=== PATIENT | male | born 1985 | race African-American/Black ===

== ENCOUNTER 2018-03-29 11:41 | Emergency (ER) | payer MEDICAID, OTHER ==
[~2018-03-29] VITALS: Ht 195.6 cm; Wt 76.0 kg
[2018-03-29 11:57] VITALS: BP 120/76
--- NOTE | 2018-03-29 12:04 | NUR ---
pt to ed for left dental pain x3 days. awaiting pa assessment.
[2018-03-29] MEDS ORDERED: HYDROcodone/APAP 5/325 TABLET PO ONE (12:30)
[2018-03-29] MEDS ORDERED: IBUPROFEN 600 MG TABLET PO ONE (12:30)
[2018-03-29] MEDS ORDERED: HYDROcodone/APAP 5/325 TABLET ONE (12:34)
[2018-03-29] MEDS ORDERED: IBUPROFEN 200 MG TABLET ONE (12:34)
== END 2018-03-29 12:47 | disposition home or self-care (01) ==
LOC: ED 12:25
DX: K02.9 Dental caries, unspecified (principal); J45.909 Unspecified asthma, uncomplicated; F17.200 Nicotine dependence, unspecified, uncomplicated
CPT/HCPCS: 99283

== ENCOUNTER 2018-10-08 17:48 | Emergency (ER) | payer MEDICAID ==
[~2018-10-08] VITALS: Ht 195.6 cm; Wt 75.2 kg
[2018-10-08 18:22] VITALS: BP 135/97
== END 2018-10-08 19:26 | disposition home or self-care (01) ==
LOC: ED 19:25
DX: G89.11 Acute pain due to trauma (principal); M54.5 Low back pain; J45.909 Unspecified asthma, uncomplicated; X58.XXXA Exposure to other specified factors, initial encounter; Y93.89 Activity, other specified; Y92.89 Other specified places as the place of occurrence of the external cause; Y99.8 Other external cause status
CPT/HCPCS: 72110; 96372; 99283; J1885

== ENCOUNTER 2019-12-31 13:56 | Emergency (ER) | payer SELFPAY ==
[~2019-12-31] VITALS: Ht 195.6 cm; Wt 74.4 kg
--- NOTE | 2019-12-31 15:02 | NUR ---
ASSUMED CARE OF PATIENT.
[2019-12-31 15:33] VITALS: BP 133/94
== END 2019-12-31 16:15 | disposition home or self-care (01) ==
LOC: ED 15:20
DX: L89.891 Pressure ulcer of other site, stage 1 (principal); M79.671 Pain in right foot; J45.909 Unspecified asthma, uncomplicated
CPT/HCPCS: 99283

== ENCOUNTER 2020-02-28 14:37 | Emergency (ER) | payer SELFPAY ==
[~2020-02-28] VITALS: Ht 195.6 cm; Wt 75.0 kg
--- NOTE | 2020-02-28 16:13 | NUR ---
TO [facility] FROM [facility]
[2020-02-28] MEDS ORDERED: KETOROLAC 60 MG/2 ML ONE (16:30)
[2020-02-28] MEDS ORDERED: HYDROcodone/APAP 5/325 TABLET ONE (16:30)
[2020-02-28] MEDS ORDERED: HYDROcodone/APAP 5/325 TABLET PO ONE (16:30)
[2020-02-28] MEDS ORDERED: KETOROLAC 30 MG/1 ML IM ONE (16:30)
--- NOTE | 2020-02-28 17:11 | NUR ---
Pt states he had a mechanical fall on 02/11. Pt has healed wound above L eyebrow, bilateral trapezious muscles are tight on palpation. Pt has limited neck movement.
[2020-02-28 17:27] VITALS: BP 138/90
== END 2020-02-28 17:29 | disposition home or self-care (01) ==
LOC: ED 17:20
DX: S16.1XXA Strain of muscle, fascia and tendon at neck level, initial encounter (principal); W22.8XXA Striking against or struck by other objects, initial encounter; Y93.89 Activity, other specified; Y92.098 Other place in other non-institutional residence as the place of occurrence of the external cause; Y99.8 Other external cause status
CPT/HCPCS: 70450; 72125; 96372; 99285; J1885